=== PATIENT | male | born 1935 | race Caucasian/White ===

== ENCOUNTER → 2018-01-14 | Outpatient (REF) | payer MEDICARE, OTHER | LOC: M LAB REF 11:55 | DX: C44.629 Squamous cell carcinoma of skin of left upper limb, including shoulder (principal); L57.0 Actinic keratosis | CPT/HCPCS: 88305 ==

== ENCOUNTER → 2018-02-17 | Outpatient (REF) | payer MEDICARE, OTHER | LOC: M LAB REF 17:43 | DX: C44.629 Squamous cell carcinoma of skin of left upper limb, including shoulder (principal) | CPT/HCPCS: 88305 ==

== ENCOUNTER → 2024-03-29 | Outpatient (CLI) | payer MEDICARE, OTHER | LOC: M PLARAD 10:16 | PROVIDERS: ATTEND Internal Medicine Pulmonary Disease | DX: R91.8 Other nonspecific abnormal finding of lung field (principal) | CPT/HCPCS: 78815; A9552 ==

== ENCOUNTER → 2024-04-26 | Outpatient (CLI) | payer MEDICARE, OTHER | LOC: M RAD 13:38 | PROVIDERS: ATTEND Internal Medicine Pulmonary Disease | DX: R91.8 Other nonspecific abnormal finding of lung field (principal) ==

== ENCOUNTER 2024-05-25 05:39 | Inpatient (IN) | payer MEDICARE, OTHER ==
[~2024-05-25] VITALS: Ht 180.3 cm; Wt 66.1 kg
[~2024-05-25 05:39] MED LIST: AMLO1TAB25 PO; B-12100010 PO; BAYE81TA10 PO; CALC667T2 PO; CLOP75TA2 PO; FURO20TA2 PO; FURO40TA2 PO; LANTINJ4 SC; LISI20TA33 PO; METO1TAB7 PO; PANT40TA29 PO; ROSU20TA86 PO
[2024-05-25] MEDS ORDERED: ACETAMINOPHEN 325 MG TAB PO ONE (05:50)
[2024-05-25] MEDS: NS 1,000 ML IV ONE ×2 (06:00→08:12)
[2024-05-25] MEDS: ACETAMINOPHEN *IV* 1,000 MG in IV 1 EA IV ONE (06:00)
[2024-05-25] MEDS: PIPERACILLIN/TAZOBACTAM SOD 4.5 GM in DEXTROSE 5% (D5W) ADV/MINI-BAG 50 ML IV ONE (06:11)
[2024-05-25 06:24] LABS: BASO % 0.2 % (0.0-1.0); HEMATOCRIT 36.3 % (42.0-52.0); HEMOGLOBIN 12.1 g/dl (13.5-17.5); LYMPH # 0.9 10^3/uL (1.5-5.0); LYMPH % 5.6 % (24.0-44.0); MEAN CORPUSCULAR HEMOGLOBIN 31.3 pg (27.0-33.0); MEAN CORPUSCULAR HGB CONC 33.3 g/dl (32.0-36.5); MEAN CORPUSCULAR VOLUME 93.8 fl (80.0-96.0); MONO # 0.4 10^3/uL (0.0-0.8); MONO % 2.6 % (2.0-8.0); NEUTROPHILS # 13.9 10^3/uL (1.5-8.5); NEUTROPHILS % 90.4 % (36.0-66.0); PLATELET COUNT, AUTOMATED 167 10^3/uL (150-450); RED BLOOD COUNT 3.87 10^6/uL (4.30-6.10); WHITE BLOOD COUNT 15.4 10^3/uL (4.0-10.0)
[2024-05-25 07:48] LABS: ALBUMIN 3.4 G/DL (3.2-5.2); BILIRUBIN,DIRECT 0.4 MG/DL (<0.4); CALCIUM LEVEL 9.5 MG/DL (8.3-10.6); CREATININE FOR GFR 8.49 MG/DL (0.70-1.30); GLOMERULAR FILTRATION RATE 6.4 (>35); POTASSIUM SERUM 5.2 MMOL/L (3.5-5.1); TOTAL PROTEIN 7.7 G/DL (5.7-8.2)
[2024-05-25] MEDS ORDERED: HOME MED LIST COMPLETE! XX SCH (08:30)
[2024-05-25] MEDS: CALCIUM ACETATE 667MG GELCAP PO SCH (09:00)
[2024-05-25 09:17] LABS: PROCALCITONIN 0.88 ng/ml
[2024-05-25] MEDS ORDERED: MOM 30ML SUSPENSION UDC PO PRN (09:40)
[2024-05-25] MEDS ORDERED: ACETAMINOPHEN 325 MG TAB PO PRN (09:40)
[2024-05-25] MEDS: ASPIRIN 81MG ENTERIC TABLET PO SCH (10:41)
[2024-05-25] MEDS: CLOPIDOGREL 75 MG TAB PO SCH (10:41)
[2024-05-25] MEDS: AZITHROMYCIN 250MG TABLET PO SCH (10:41)
[2024-05-25] MEDS: PANTOPRAZOLE 40MG TAB (PROTONIX) PO SCH (10:41)
[2024-05-25] MEDS: DOCUSATE SODIUM 100MG CAPSULE PO SCH (10:42)
[2024-05-25] MEDS: CYANOCOBALAMIN 500 MCG TAB PO SCH (10:42)
[2024-05-25] MEDS: cefTRIAXone SOD 1 GM in DEXTROSE 5% (D5W) ADV/MINI-BAG 50 ML IV SCH (10:42)
[2024-05-25] MEDS: NS 500 ML IV ONE (10:54)
[2024-05-25 11:03] LABS: ALBUMIN 2.7 G/DL (3.2-5.2); CALCIUM LEVEL 8.7 MG/DL (8.3-10.6); CREATININE FOR GFR 8.71 MG/DL (0.70-1.30); GLOMERULAR FILTRATION RATE 6.2 (>35); PHOSPHORUS LEVEL 2.8 MG/DL (2.4-5.1); POTASSIUM SERUM 4.8 MMOL/L (3.5-5.1)
[2024-05-25] MEDS ORDERED: GLUCAGON INJ 1MG VIAL SC PRN (11:20)
[2024-05-25] MEDS ORDERED: GLUCOSE 4 GM CHEW PO PRN (11:20)
[2024-05-25] MEDS ORDERED: DEXTROSE 50% 50ML SYRINGE IV PRN (11:20)
[2024-05-25 11:47] LABS: HEPATITIS B CORE ANTIBODY IGM NEGATIVE (NEGATIVE); HEPATITIS B SURFACE ANTIBODY POSITIVE (POSITIVE); HEPATITIS B SURFACE ANTIGEN NEGATIVE (NEGATIVE); HEPATITIS C VIRUS ABY INDEX 0.03 INDEX (<0.8)
[2024-05-25] MEDS: INSULIN LISPRO (NovoLOG) PER UNIT SC SCH ×2 (12:36→21:00)
[2024-05-25] MEDS: ALBUTEROL 90 MCG/ACT 8GM HFA INHALER INH SCH (13:04)
[2024-05-25] MEDS: HEPARIN SOD (PORCINE) 5000UNITS/ML 1ML VIAL/SYRINGE SC SCH (14:29)
[2024-05-25 17:41] VITALS: BP 133/56; TEMP 98.1; O2SAT 95
[2024-05-25 20:42] VITALS: BP 131/55; TEMP 98.1; O2SAT 96
[2024-05-25] MEDS: LEVEMIR (INSULIN DETEMIR) 1 UNITS/0.01ML SC SCH (21:00)
[2024-05-25] MEDS: ROSUVASTATIN 10 MG TAB (CRESTOR) PO SCH (21:23)
[2024-05-25 22:27] VITALS: O2SAT 77
[2024-05-25 22:28] VITALS: O2SAT 90
[2024-05-25] MEDS: ALBUTEROL SULFATE 2.5MG/0.5ML INH NEB SOLN NEB PRN (23:07)
[2024-05-25 23:11] VITALS: O2SAT 90
[2024-05-25] MEDS: DOXYCYCLINE HYCLATE 100MG TABLET PO SCH (23:34)
[2024-05-26] VITALS (33 sets, daily range): BP systolic 102–158; BP diastolic 50–78; TEMP 97.7–101.8; O2SAT 85–98
[2024-05-26] MEDS: ALBUTEROL SULFATE 2.5MG/0.5ML INH NEB SOLN NEB SCH (01:56)
[2024-05-26] MEDS: FUROSEMIDE 100MG/10ML VIAL IV STA (04:01)
[2024-05-26] MEDS ORDERED: TRANEXAMIC ACID 100 MG/ML 10ML VIAL NEB PRN (04:10)
[2024-05-26 04:40] LABS: HEMATOCRIT 30.6 % (42.0-52.0); MEAN CORPUSCULAR HEMOGLOBIN 31.8 pg (27.0-33.0); MEAN CORPUSCULAR VOLUME 96.2 fl (80.0-96.0); PLATELET COUNT, AUTOMATED 136 10^3/uL (150-450); RED BLOOD COUNT 3.18 10^6/uL (4.30-6.10)
[2024-05-26 04:45] LABS: HEMOGLOBIN 10.1 g/dl (13.5-17.5)
[2024-05-26] MEDS ORDERED: VANCOMYCIN HCL 500 MG in DEXTROSE 5% (D5W) MINI-BAG PLU 100 ML IV SCH (04:45)
[2024-05-26] MEDS ORDERED: PIPERACILLIN/TAZOBACTAM SOD 3.375 GM in DEXTROSE 5% (D5W) ADV/MINI-BAG 50 ML IV SCH (04:45)
[2024-05-26 04:50] LABS: INR 1.2; PARTIAL THROMBOPLASTIN TIME 35.8 SECONDS (24.8-34.2); PROTHROMBIN TIME 14.9 SECONDS (12.5-14.5)
[2024-05-26 05:11] LABS: VENOUS BASE EXCESS -4.4 (-2.0-2.0); VENOUS PARTIAL PRESSURE CO2 34.2 mmHg (38.0-50.0); VENOUS PARTIAL PRESSURE O2 153.9 mmHg (30.0-50.0); VENOUS PH 7.384 UNITS (7.330-7.430); VENOUS STANDARD HCO3 20.9 MMOL/L
[2024-05-26 05:12] LABS: VENOUS SITE NOT GIVEN
[2024-05-26 05:31] LABS: ALBUMIN 2.5 G/DL (3.2-5.2); ALKALINE PHOSPHATASE 63 U/L (46-116); ALT/SGPT < 9 U/L (7.0-40); AST/SGOT < 8 U/L (<34); BILIRUBIN,DIRECT 0.2 MG/DL (<0.4); BILIRUBIN,TOTAL 0.5 MG/DL (0.3-1.2); BLOOD UREA NITROGEN 96 MG/DL (9-23); CARBON DIOXIDE LEVEL 23 MMOL/L (20-31); CHLORIDE LEVEL 104 MMOL/L (98-107); CREATININE FOR GFR 9.46 MG/DL (0.70-1.30); GLOMERULAR FILTRATION RATE 5.6 (>35); GLUCOSE, FASTING 136 MG/DL (74-106); PHOSPHORUS LEVEL 4.6 MG/DL (2.4-5.1); POTASSIUM SERUM 4.8 MMOL/L (3.5-5.1); SODIUM LEVEL 137 MMOL/L (136-145); TOTAL PROTEIN 6.1 G/DL (5.7-8.2)
[2024-05-26] MEDS: ACETAMINOPHEN *IV* 1,000 MG in IV 1 EA IV PRN (05:37)
[2024-05-26] MEDS ORDERED: VANCOMYCIN INTERMITTENT/PULSE DOSING BY CLINICAL PHARMACIST PER DOSING PROTOCOL XX SCH (05:40)
[2024-05-26] MEDS ORDERED: VANCOMYCIN 1,500 MG/300 ML IV BAG *LOAD IV ONE (06:00)
[2024-05-26] MEDS ORDERED: LIDOCAINE 1% SDV 5ML VIAL SC PRN (06:00)
[2024-05-26] MEDS ORDERED: HEPARIN 1,000UNITS/ML 10ML VIAL (FOR RADIOLOGY & DIALYSIS ONLY) IV PRN (06:00)
[2024-05-26] MEDS ORDERED: SODIUM CHLORIDE 0.9% 1000 ML IV PRN (06:00)
[2024-05-26 06:12] LABS: VENOUS HCO3 20.7 MMOL/L (23.0-27.0); VENOUS O2 SATURATION 99.1 % (60.0-80.0); VENOUS PARTIAL PRESSURE CO2 32.1 mmHg (38.0-50.0); VENOUS PARTIAL PRESSURE O2 199.3 mmHg (30.0-50.0); VENOUS PH 7.427 UNITS (7.330-7.430); VENOUS TOTAL CO2 21.7 MMOL/L (24.0-28.0)
[2024-05-26] MEDS: VANCOMYCIN 1,000 MG/200 ML IV BAG *LOAD IV ONE (06:17)
[2024-05-26] MEDS ORDERED: PIPERACILLIN/TAZOBACTAM SOD 2.25 GM in DEXTROSE 5% (D5W) ADV/MINI-BAG 50 ML IV SCH (08:00)
[2024-05-26] MEDS: HEPARIN 1,000UNITS/ML 10ML VIAL (FOR RADIOLOGY & DIALYSIS ONLY) XX SCH (10:00)
[2024-05-26] MEDS: KETOROLAC 30 MG/ML 1ML VIAL IV ONE (12:55)
[2024-05-26] MEDS: PIPERACILLIN/TAZOBACTAM SOD 2.25 GM in DEXTROSE 5% (D5W) ADV/MINI-BAG 50 ML IV SCH (12:58)
[2024-05-26] MEDS ORDERED: VANCOMYCIN/WATER FOR INJ 1,000 MG in IV 1 EA IV SCH (18:00)
[2024-05-26] MEDS: VANCOMYCIN/WATER FOR INJ 1,000 MG in IV 1 EA IV SCH (18:07)
[2024-05-27 03:20] VITALS: BP 111/55; TEMP 98.1; O2SAT 88
[2024-05-27 05:55] LABS: HEMOGLOBIN 9.2 g/dl (13.5-17.5); MEAN CORPUSCULAR HEMOGLOBIN 31.8 pg (27.0-33.0); MEAN CORPUSCULAR HGB CONC 32.9 g/dl (32.0-36.5); MEAN CORPUSCULAR VOLUME 96.9 fl (80.0-96.0); PLATELET COUNT, AUTOMATED 133 10^3/uL (150-450); RED BLOOD COUNT 2.89 10^6/uL (4.30-6.10)
[2024-05-27] MEDS ORDERED: SODIUM CHLORIDE 0.9% 1000 ML IV PRN (06:00)
[2024-05-27] MEDS ORDERED: LIDOCAINE 1% SDV 5ML VIAL SC PRN (06:00)
[2024-05-27] MEDS ORDERED: HEPARIN 1,000UNITS/ML 10ML VIAL (FOR RADIOLOGY & DIALYSIS ONLY) IV PRN (06:00)
[2024-05-27 06:19] LABS: CALCIUM LEVEL 8.8 MG/DL (8.3-10.6); CREATININE FOR GFR 6.49 MG/DL (0.70-1.30); GLOMERULAR FILTRATION RATE 8.7 (>35); POTASSIUM SERUM 4.4 MMOL/L (3.5-5.1)
[2024-05-27] MEDS: HEPARIN 1,000UNITS/ML 10ML VIAL (FOR RADIOLOGY & DIALYSIS ONLY) XX SCH (08:28)
[2024-05-27 12:00] VITALS: BP 105/54; TEMP 98.1; O2SAT 98
[2024-05-27] MEDS: FLUBLOK(EGGFREE) TRIVAL(24-25) VACCINE PF 0.5ML SYRINGE 18YRS & OLDER IM.IMMUN ONE (13:31)
[2024-05-27 17:18] VITALS: BP 88/40; O2SAT 96
[2024-05-27] MEDS: NS 500 ML IV ONE (17:32)
[2024-05-27] MEDS: MIDODRINE 5 MG TAB PO ONE (17:36)
[2024-05-27] MEDS: DIGOXIN INJ 0.5 MG/2 ML AMP IV STA (17:38)
[2024-05-27 17:58] VITALS: BP 120/40; TEMP 98.6; O2SAT 94
[2024-05-27 18:05] LABS: THYROXINE (T4) 5.5 UG/DL (4.5-10.9)
[2024-05-27 18:06] LABS: THYROID STIMULATING HORMONE 1.036 uIU/ML (0.55-4.78)
[2024-05-27 18:11] LABS: PROCALCITONIN 24.87 ng/ml
[2024-05-27 18:18] VITALS: BP 114/54; TEMP 99.9; O2SAT 95
[2024-05-27 18:49] LABS: FREE THYROXINE INDEX 2.4 % (1.4-3.8); T UPTAKE 43.6 % (22.5-37.0)
[2024-05-27] MEDS ORDERED: LEVALBUTEROL 1.25MG 0.5ML CONCENTRATE NEB INH PRN (19:45)
[2024-05-27 20:45] VITALS: BP 112/67; TEMP 98.9; O2SAT 95
[2024-05-27 21:39] LABS: CK-MB VALUE MASS 1.3 NG/ML (<3.6); MB/CK RELATIVE INDEX 2.5 (< OR =4)
[2024-05-27] MEDS ORDERED: ATORVASTATIN 20 MG TAB PO SCH (22:30)
[2024-05-28 00:04] LABS: CK-MB VALUE MASS < 1.0 NG/ML (<3.6)
[2024-05-28 00:05] LABS: CPK CREATINE PHOSPHOKINASE 44 U/L (46-171); MB/CK RELATIVE INDEX 2.27 (< OR =4)
[2024-05-28 01:00] VITALS: BP 123/58; TEMP 99.7; O2SAT 97
[2024-05-28] MEDS: LEVALBUTEROL 1.25MG 0.5ML CONCENTRATE NEB INH SCH (02:57)
[2024-05-28 03:03] LABS: CK-MB VALUE MASS < 1.0 NG/ML (<3.6)
[2024-05-28 03:04] LABS: CPK CREATINE PHOSPHOKINASE 39 U/L (46-171); MB/CK RELATIVE INDEX 2.56 (< OR =4)
[2024-05-28 03:57] VITALS: BP 134/63; TEMP 98.7; O2SAT 84
[2024-05-28 05:36] LABS: HEMATOCRIT 27.2 % (42.0-52.0); HEMOGLOBIN 9.1 g/dl (13.5-17.5); MEAN CORPUSCULAR HGB CONC 33.5 g/dl (32.0-36.5); MEAN CORPUSCULAR VOLUME 95.8 fl (80.0-96.0); PLATELET COUNT, AUTOMATED 145 10^3/uL (150-450); RED BLOOD COUNT 2.84 10^6/uL (4.30-6.10); WHITE BLOOD COUNT 12.4 10^3/uL (4.0-10.0)
[2024-05-28 05:55] LABS: CK-MB VALUE MASS < 1.0 NG/ML (<3.6)
[2024-05-28 05:57] LABS: BLOOD UREA NITROGEN 38 MG/DL (9-23); CALCIUM LEVEL 8.8 MG/DL (8.3-10.6); CARBON DIOXIDE LEVEL 24 MMOL/L (20-31); CHLORIDE LEVEL 104 MMOL/L (98-107); CPK CREATINE PHOSPHOKINASE 39 U/L (46-171); CREATININE FOR GFR 5.18 MG/DL (0.70-1.30); GLOMERULAR FILTRATION RATE 11.2 (>35); GLUCOSE, FASTING 94 MG/DL (74-106); MB/CK RELATIVE INDEX 2.56 (< OR =4); POTASSIUM SERUM 3.7 MMOL/L (3.5-5.1); SODIUM LEVEL 138 MMOL/L (136-145)
[2024-05-28 07:53] VITALS: BP 124/60; TEMP 99.2; O2SAT 97
[2024-05-28 09:05] VITALS: O2SAT 96
[2024-05-28 16:12] VITALS: BP 142/73; TEMP 99.6; O2SAT 97
[2024-05-28] MEDS: ceFAZolin SOD 1 GM in DEXTROSE 5% (D5W) ADV/MINI-BAG 50 ML IV SCH (16:25)
[2024-05-28 20:44] VITALS: BP 143/92; TEMP 99; O2SAT 94
[2024-05-29] VITALS (7 sets, daily range): BP systolic 117–164; BP diastolic 57–92; TEMP 98.9–101.6; O2SAT 90–95
[2024-05-29 05:01] LABS: HEMOGLOBIN 9.8 g/dl (13.5-17.5); MEAN CORPUSCULAR HEMOGLOBIN 31.6 pg (27.0-33.0); MEAN CORPUSCULAR HGB CONC 33.8 g/dl (32.0-36.5); MEAN CORPUSCULAR VOLUME 93.5 fl (80.0-96.0); PLATELET COUNT, AUTOMATED 177 10^3/uL (150-450); WHITE BLOOD COUNT 11.2 10^3/uL (4.0-10.0)
[2024-05-29 05:35] LABS: CALCIUM LEVEL 9.4 MG/DL (8.3-10.6); CREATININE FOR GFR 6.87 MG/DL (0.70-1.30); GLOMERULAR FILTRATION RATE 8.1 (>35); POTASSIUM SERUM 3.8 MMOL/L (3.5-5.1)
[2024-05-29] MEDS ORDERED: HEPARIN 1,000UNITS/ML 10ML VIAL (FOR RADIOLOGY & DIALYSIS ONLY) XX SCH (06:00)
[2024-05-29] MEDS ORDERED: HEPARIN 1,000UNITS/ML 10ML VIAL (FOR RADIOLOGY & DIALYSIS ONLY) IV PRN (06:00)
[2024-05-29] MEDS ORDERED: LIDOCAINE 1% SDV 5ML VIAL SC PRN (06:00)
[2024-05-29] MEDS ORDERED: SODIUM CHLORIDE 0.9% 1000 ML IV PRN (06:00)
[2024-05-29] MEDS ORDERED: SODIUM CHLORIDE NASAL 0.65% SPRAY BTL (OCEAN) PRN (08:15)
[2024-05-29] MEDS: DARBEPOETIN 100MCG/0.5ML *DIALYSIS* SYRINGE IV SCH (09:41)
[2024-05-29] MEDS: SODIUM CHLORIDE NASAL 0.65% SPRAY BTL (OCEAN) SCH (13:10)
[2024-05-29] MEDS: METOPROLOL 5 MG/5 ML VIAL IV SCH (13:10)
[2024-05-29] MEDS ORDERED: ONDANSETRON 4MG 2ML VIAL IV PRN (14:55)
[2024-05-29] MEDS: ONDANSETRON 4MG 2ML VIAL IV ONE (15:09)
[2024-05-29 15:54] LABS: CK-MB VALUE MASS < 1.0 NG/ML (<3.6)
[2024-05-29 15:58] LABS: CPK CREATINE PHOSPHOKINASE 27 U/L (46-171)
[2024-05-29] MEDS ORDERED: METOPROLOL TART 25 MG TABLET PO SCH (21:00)
[2024-05-30 04:05] VITALS: BP 128/60; TEMP 100.1; O2SAT 90
[2024-05-30 07:24] LABS: HEMOGLOBIN 10.8 g/dl (13.5-17.5); MEAN CORPUSCULAR HEMOGLOBIN 31.7 pg (27.0-33.0); MEAN CORPUSCULAR HGB CONC 33.8 g/dl (32.0-36.5); MEAN CORPUSCULAR VOLUME 93.8 fl (80.0-96.0); PLATELET COUNT, AUTOMATED 230 10^3/uL (150-450); RED BLOOD COUNT 3.41 10^6/uL (4.30-6.10); WHITE BLOOD COUNT 14.1 10^3/uL (4.0-10.0)
[2024-05-30 08:02] LABS: CALCIUM LEVEL 9.3 MG/DL (8.3-10.6); CREATININE FOR GFR 5.25 MG/DL (0.70-1.30); GLOMERULAR FILTRATION RATE 11.1 (>35); POTASSIUM SERUM 3.9 MMOL/L (3.5-5.1)
[2024-05-30 08:05] VITALS: BP 114/60; TEMP 99; O2SAT 99
[2024-05-30 11:48] VITALS: BP 127/60; TEMP 100; O2SAT 90
[2024-05-30 15:56] VITALS: BP 133/65; TEMP 99.6; O2SAT 91
[2024-05-30 20:27] VITALS: BP 112/56; TEMP 99.8; O2SAT 93
[2024-05-31 03:59] VITALS: BP 135/63; TEMP 99.5; O2SAT 92
[2024-05-31 05:17] LABS: HEMATOCRIT 27.6 % (42.0-52.0); HEMOGLOBIN 9.4 g/dl (13.5-17.5); MEAN CORPUSCULAR HEMOGLOBIN 31.6 pg (27.0-33.0); MEAN CORPUSCULAR HGB CONC 34.1 g/dl (32.0-36.5); MEAN CORPUSCULAR VOLUME 92.9 fl (80.0-96.0); PLATELET COUNT, AUTOMATED 243 10^3/uL (150-450); RED BLOOD COUNT 2.97 10^6/uL (4.30-6.10); WHITE BLOOD COUNT 14.3 10^3/uL (4.0-10.0)
[2024-05-31 05:54] LABS: CREATININE FOR GFR 7.6 MG/DL (0.70-1.30); GLOMERULAR FILTRATION RATE 7.2 (>35); POTASSIUM SERUM 3.6 MMOL/L (3.5-5.1)
[2024-05-31 08:24] VITALS: BP 138/64; TEMP 99.3; O2SAT 100
[2024-05-31 15:56] VITALS: BP 145/67; TEMP 99.2; O2SAT 95
[2024-05-31 20:39] VITALS: BP 137/62; TEMP 99; O2SAT 93
[2024-05-31 22:58] VITALS: BP 147/47; TEMP 98.8; O2SAT 94
[2024-06-01] VITALS (8 sets, daily range): BP systolic 88–146; BP diastolic 32–67; TEMP 98.1–100.6; O2SAT 95–99
[2024-06-01] MEDS ORDERED: HEPARIN 1,000UNITS/ML 10ML VIAL (FOR RADIOLOGY & DIALYSIS ONLY) XX SCH (06:00)
[2024-06-01] MEDS ORDERED: SODIUM CHLORIDE 0.9% 1000 ML IV PRN (06:00)
[2024-06-01] MEDS ORDERED: HEPARIN 1,000UNITS/ML 10ML VIAL (FOR RADIOLOGY & DIALYSIS ONLY) IV PRN (06:00)
[2024-06-01] MEDS ORDERED: LIDOCAINE 1% SDV 5ML VIAL SC PRN (06:00)
[2024-06-01] MEDS: DIGOXIN INJ 0.5 MG/2 ML AMP IV STA (12:32)
[2024-06-01] MEDS: METOPROLOL TART 12.5 MG PER 1/2 TAB PO SCH (13:12)
[2024-06-01] MEDS: METOPROLOL 5 MG/5 ML VIAL IV STA (13:12)
[2024-06-01 14:03] LABS: HEMATOCRIT 31.9 % (42.0-52.0); HEMOGLOBIN 10.8 g/dl (13.5-17.5); MEAN CORPUSCULAR HEMOGLOBIN 31.5 pg (27.0-33.0); MEAN CORPUSCULAR HGB CONC 33.9 g/dl (32.0-36.5); PLATELET COUNT, AUTOMATED 316 10^3/uL (150-450); RED BLOOD COUNT 3.43 10^6/uL (4.30-6.10); WHITE BLOOD COUNT 12.3 10^3/uL (4.0-10.0)
[2024-06-01 14:42] LABS: ALBUMIN 2.4 G/DL (3.2-5.2); CREATININE FOR GFR 4.13 MG/DL (0.70-1.30); GLOMERULAR FILTRATION RATE 14.6 (>35); PHOSPHORUS LEVEL 1.8 MG/DL (2.4-5.1); POTASSIUM SERUM 3.4 MMOL/L (3.5-5.1)
[2024-06-02] VITALS (7 sets, daily range): BP systolic 122–149; BP diastolic 59–69; TEMP 98–99.3; O2SAT 95–98
[2024-06-02 05:09] LABS: HEMATOCRIT 30.6 % (42.0-52.0); HEMOGLOBIN 10.1 g/dl (13.5-17.5); MEAN CORPUSCULAR HEMOGLOBIN 30.9 pg (27.0-33.0); MEAN CORPUSCULAR VOLUME 93.6 fl (80.0-96.0); PLATELET COUNT, AUTOMATED 337 10^3/uL (150-450); RED BLOOD COUNT 3.27 10^6/uL (4.30-6.10); WHITE BLOOD COUNT 14.3 10^3/uL (4.0-10.0)
[2024-06-02 05:50] LABS: ALBUMIN 2.3 G/DL (3.2-5.2); CREATININE FOR GFR 6.44 MG/DL (0.70-1.30); GLOMERULAR FILTRATION RATE 8.8 (>35); PHOSPHORUS LEVEL 2.5 MG/DL (2.4-5.1); POTASSIUM SERUM 3.5 MMOL/L (3.5-5.1)
[2024-06-03 03:23] VITALS: BP 124/58; TEMP 98.7; O2SAT 96
[2024-06-03 05:59] VITALS: BP 146/67
[2024-06-03] MEDS ORDERED: HEPARIN 1,000UNITS/ML 10ML VIAL (FOR RADIOLOGY & DIALYSIS ONLY) XX SCH (06:00)
[2024-06-03] MEDS ORDERED: HEPARIN 1,000UNITS/ML 10ML VIAL (FOR RADIOLOGY & DIALYSIS ONLY) IV PRN (06:00)
[2024-06-03] MEDS ORDERED: LIDOCAINE 1% SDV 5ML VIAL SC PRN (06:00)
[2024-06-03] MEDS ORDERED: SODIUM CHLORIDE 0.9% 1000 ML IV PRN (06:00)
[2024-06-03 07:05] LABS: HEMATOCRIT 29.9 % (42.0-52.0); MEAN CORPUSCULAR HEMOGLOBIN 31.3 pg (27.0-33.0); MEAN CORPUSCULAR HGB CONC 33.4 g/dl (32.0-36.5); MEAN CORPUSCULAR VOLUME 93.4 fl (80.0-96.0); PLATELET COUNT, AUTOMATED 377 10^3/uL (150-450); WHITE BLOOD COUNT 14.5 10^3/uL (4.0-10.0)
[2024-06-03 07:38] LABS: ALBUMIN 2.3 G/DL (3.2-5.2); CALCIUM LEVEL 9.1 MG/DL (8.3-10.6); CREATININE FOR GFR 8.61 MG/DL (0.70-1.30); GLOMERULAR FILTRATION RATE 6.3 (>35); PHOSPHORUS LEVEL 3.5 MG/DL (2.4-5.1); POTASSIUM SERUM 3.7 MMOL/L (3.5-5.1)
[2024-06-03 08:06] VITALS: BP 132/82; TEMP 98.7; O2SAT 97
[2024-06-03] MEDS ORDERED: CEFA2PLA4 IV (08:32)
[2024-06-03 09:02] LABS: PROCALCITONIN 1.68 ng/ml
[2024-06-03] MEDS ORDERED: METO25TA4 PO (10:18)
== END 2024-06-03 14:26 | disposition home or self-care (01) | DRG 871 ==
LOC: M ED 05:39 → EEVIPCON 09:40 → M ED INP 09:40 → M MSPAV 17:32 → M PCU 05-26 04:06 → M ICU 05-26 04:43 → M MSPAV 05-26 17:44 → M PCU 05-27 18:05 → M MSPAV 05-31 22:45 → M PCU 06-01 13:02
PROVIDERS: ADMIT Student in an Organized Health Care Education/Training Program; ATTEND General Practice
PROC: 5A1D70Z Performance of Urinary Filtration, Intermittent, Less than 6 Hours Per Day (ICD-10-PCS; principal; 2024-05-27)
DX: A41.9 Sepsis, unspecified organism (principal); N18.6 End stage renal disease; J96.01 Acute respiratory failure with hypoxia; J15.211 Pneumonia due to Methicillin susceptible Staphylococcus aureus; I12.0 Hypertensive chronic kidney disease with stage 5 chronic kidney disease or end stage renal disease; R04.2 Hemoptysis; R65.20 Severe sepsis without septic shock; E11.51 Type 2 diabetes mellitus with diabetic peripheral angiopathy without gangrene; E11.22 Type 2 diabetes mellitus with diabetic chronic kidney disease; D64.9 Anemia, unspecified; K21.9 Gastro-esophageal reflux disease without esophagitis; R04.0 Epistaxis; I48.91 Unspecified atrial fibrillation; I48.0 Paroxysmal atrial fibrillation; I25.10 Atherosclerotic heart disease of native coronary artery without angina pectoris; Z95.1 Presence of aortocoronary bypass graft; Z96.653 Presence of artificial knee joint, bilateral; Z87.891 Personal history of nicotine dependence; Z79.899 Other long term (current) drug therapy; Z79.82 Long term (current) use of aspirin

== ENCOUNTER → 2024-06-25 | Outpatient (CLI) | payer MEDICARE, OTHER ==
[~2024-06-25] MED LIST changes: +CEFA2PLA4 IV; +METO25TA4 PO
== END ==
LOC: M RAD 07:32
PROVIDERS: ATTEND Internal Medicine Pulmonary Disease
DX: R91.8 Other nonspecific abnormal finding of lung field (principal); J90 Pleural effusion, not elsewhere classified; I25.84 Coronary atherosclerosis due to calcified coronary lesion

== ENCOUNTER → 2024-06-28 | Outpatient (CLI) | payer MEDICARE, OTHER ==
[2024-06-28 10:14] LABS: BASO # 0.1 10^3/uL (0.0-0.2); BASO % 0.5 % (0.0-1.0); EOS # 0.4 10^3/uL (0.0-0.5); EOS % 3.3 % (0.0-3.0); HEMATOCRIT 35.4 % (42.0-52.0); HEMOGLOBIN 11.3 g/dl (13.5-17.5); LYMPH # 2.6 10^3/uL (1.5-5.0); LYMPH % 19.8 % (24.0-44.0); MEAN CORPUSCULAR HEMOGLOBIN 31.6 pg (27.0-33.0); MEAN CORPUSCULAR HGB CONC 31.9 g/dl (32.0-36.5); MEAN CORPUSCULAR VOLUME 98.9 fl (80.0-96.0); MONO # 1.2 10^3/uL (0.0-0.8); MONO % 8.8 % (2.0-8.0); NEUTROPHILS # 8.8 10^3/uL (1.5-8.5); NEUTROPHILS % 67.1 % (36.0-66.0); PLATELET COUNT, AUTOMATED 263 10^3/uL (150-450); RED BLOOD COUNT 3.58 10^6/uL (4.30-6.10); WHITE BLOOD COUNT 13.2 10^3/uL (4.0-10.0)
[2024-06-28 10:18] LABS: ERYTHROCYTE SEDIMENTATION RATE 68 mm/hr (0-20)
== END ==
LOC: M PLALAB 08:49
PROVIDERS: ATTEND Internal Medicine Infectious Disease
DX: A49.01 Methicillin susceptible Staphylococcus aureus infection, unspecified site (principal); R91.8 Other nonspecific abnormal finding of lung field

== ENCOUNTER 2024-06-30 08:16 | Day surgery (SDC) | payer MEDICARE, OTHER ==
[~2024-06-30] VITALS: Ht 170.2 cm; Wt 70.3 kg
[2024-06-30] MEDS ORDERED: ETOMIDATE INJ 20MG/10ML VIAL As Ordered ONE (08:28)
[2024-06-30] MEDS ORDERED: LIDOCAINE 2% 100MG/5ML SDV (FOR ANES.) As Ordered ONE (08:28)
[2024-06-30] MEDS ORDERED: ONDANSETRON 4MG 2ML VIAL As Ordered ONE (08:28)
[2024-06-30] MEDS ORDERED: SUGAMMADEX SODIUM 500 MG/5 ML VIAL (BRIDION) As Ordered ONE (08:28)
[2024-06-30] MEDS ORDERED: ROCURONIUM BROMIDE 50MG/5ML VIAL As Ordered ONE (08:28)
[2024-06-30] MEDS ORDERED: propofoL 200 MG/20 ML VIAL As Ordered ONE (08:28)
[2024-06-30] MEDS ORDERED: GLUCOSE 4 GM CHEW PO PRN (09:05)
[2024-06-30] MEDS ORDERED: GLUCAGON INJ 1MG VIAL SC PRN (09:05)
[2024-06-30] MEDS ORDERED: DEXTROSE 50% 50ML SYRINGE IV PRN (09:05)
[2024-06-30] MEDS ORDERED: LR 1,000 ML IV SCH (09:05)
[2024-06-30] MEDS ORDERED: INSULIN LISPRO (NovoLOG) PER UNIT SC PRN (09:05)
[2024-06-30] MEDS ORDERED: DESMOPRESSIN ACETATE 20 MCG in NS 50 ML IV ONE (09:20)
[2024-06-30] MEDS ORDERED: fentaNYL 100 MCG/2 ML INJECTION As Ordered ONE (10:00)
[2024-06-30] MEDS: ALBUTEROL SULFATE 2.5MG/0.5ML INH NEB SOLN INH ONE (10:00)
[2024-06-30] MEDS: LIDOCAINE PRES-FREE 2% 10ML AMP INH ONE (10:00)
[2024-06-30] MEDS: CETACAINE SPRAY 5GM As Ordered ONE (10:35)
[2024-06-30] MEDS ORDERED: PHENYLephrine 500MCG 5ML (100MCG/ML) SYRINGE As Ordered ONE (11:11)
[2024-06-30] MEDS: EPINEPHrine 1MG/10ML SYRINGE 1.5IN As Ordered ONE (11:43)
[2024-06-30] MEDS: THROMBIN 5,000 UNITS VIAL As Ordered ONE (11:43)
[2024-06-30 12:06] VITALS: BP 107/57; TEMP 97.3; O2SAT 96
== END 2024-06-30 12:35 | disposition home or self-care (01) ==
LOC: M SDC 08:16
PROVIDERS: ATTEND Internal Medicine Pulmonary Disease
DX: C34.32 Malignant neoplasm of lower lobe, left bronchus or lung (principal); I25.10 Atherosclerotic heart disease of native coronary artery without angina pectoris; I10 Essential (primary) hypertension; E11.9 Type 2 diabetes mellitus without complications; K21.9 Gastro-esophageal reflux disease without esophagitis; G47.33 Obstructive sleep apnea (adult) (pediatric); Z79.02 Long term (current) use of antithrombotics/antiplatelets; Z79.4 Long term (current) use of insulin; Z79.899 Other long term (current) drug therapy; Z88.2 Allergy status to sulfonamides
CPT/HCPCS: 31624; 31627; 31628; 31629; 31654; 36415; 71045; 76000; 84132; 87070; 87102; 87116; 87205; 87206; 88108; 88173; 88305; C1601; J0171; J1100; J2371; J2405; J3010; S2900

== ENCOUNTER 2024-07-06 14:22 | Inpatient (IN) | payer MEDICARE, OTHER ==
[~2024-07-06] VITALS: Ht 172.7 cm; Wt 65.1 kg
[2024-07-06 15:05] LABS: BASO % 0.5 % (0.0-1.0); EOS # 0.2 10^3/uL (0.0-0.5); EOS % 2.6 % (0.0-3.0); HEMATOCRIT 32.8 % (42.0-52.0); HEMOGLOBIN 10.7 g/dl (13.5-17.5); LYMPH # 1.8 10^3/uL (1.5-5.0); MEAN CORPUSCULAR HEMOGLOBIN 31.5 pg (27.0-33.0); MEAN CORPUSCULAR HGB CONC 32.6 g/dl (32.0-36.5); MEAN CORPUSCULAR VOLUME 96.5 fl (80.0-96.0); MONO # 0.8 10^3/uL (0.0-0.8); MONO % 9.6 % (2.0-8.0); NEUTROPHILS # 5.7 10^3/uL (1.5-8.5); NEUTROPHILS % 65.8 % (36.0-66.0); PLATELET COUNT, AUTOMATED 189 10^3/uL (150-450); WHITE BLOOD COUNT 8.7 10^3/uL (4.0-10.0)
[2024-07-06] MEDS ORDERED: LISI20TA33 PO (15:07)
[2024-07-06] MEDS: METOPROLOL 5 MG/5 ML VIAL IV SCH (15:08)
[2024-07-06 15:16] LABS: INR 1.1; PARTIAL THROMBOPLASTIN TIME 27.5 SECONDS (24.8-34.2); PROTHROMBIN TIME 14.5 SECONDS (12.5-14.5)
[2024-07-06 15:26] LABS: CK-MB VALUE MASS < 1.0 NG/ML (<3.6)
[2024-07-06 15:29] LABS: ALKALINE PHOSPHATASE 113 U/L (40-129); ALT/SGPT 10 U/L (7.0-40); AST/SGOT 13 U/L (<34); BILIRUBIN,DIRECT 0.2 MG/DL (<0.4); BILIRUBIN,TOTAL 0.5 MG/DL (0.3-1.2); BLOOD UREA NITROGEN 40 MG/DL (9-23); CALCIUM LEVEL 9.3 MG/DL (8.3-10.6); CARBON DIOXIDE LEVEL 33 MMOL/L (20-31); CHLORIDE LEVEL 98 MMOL/L (98-107); CREATININE FOR GFR 5.53 MG/DL (0.70-1.30); GLOMERULAR FILTRATION RATE 10.4 (>35); GLUCOSE, FASTING 124 MG/DL (74-106); MAGNESIUM LEVEL 2.1 MG/DL (1.8-2.4); SODIUM LEVEL 141 MMOL/L (136-145); TOTAL PROTEIN 7.3 G/DL (5.7-8.2)
[2024-07-06 15:31] LABS: FREE T4 1.71 NG/DL (0.89-1.76); THYROID STIMULATING HORMONE 0.794 uIU/ML (0.55-4.78)
[2024-07-06 15:32] LABS: CPK CREATINE PHOSPHOKINASE 35 U/L (46-171); MB/CK RELATIVE INDEX 2.85 (< OR =4)
[2024-07-06 16:32] LABS: CK-MB VALUE MASS < 1.0 NG/ML (<3.6)
[2024-07-06 16:33] LABS: CPK CREATINE PHOSPHOKINASE 27 U/L (46-171)
[2024-07-06] MEDS ORDERED: HOME MED LIST COMPLETE! XX SCH (17:40)
[2024-07-06] MEDS: PIPERACILLIN/TAZOBACTAM SOD 2.25 GM in DEXTROSE 5% (D5W) ADV/MINI-BAG 50 ML IV ONE (17:46)
[2024-07-06] MEDS: DIGOXIN INJ 0.5 MG/2 ML AMP IV STA (17:46)
[2024-07-06] MEDS: DIGOXIN INJ 0.5 MG/2 ML AMP IV ONE (19:41)
[2024-07-06] MEDS ORDERED: METOPROLOL TART 25 MG TABLET PO SCH (20:00)
[2024-07-06] MEDS: METOPROLOL TART 50 MG TAB PO SCH (20:40)
[2024-07-06 21:45] VITALS: BP 140/77; TEMP 98.8; O2SAT 97
[2024-07-06] MEDS: PANTOPRAZOLE 40MG TAB (PROTONIX) PO SCH (21:55)
[2024-07-06] MEDS: LEVEMIR (INSULIN DETEMIR) 1 UNITS/0.01ML SC SCH (21:56)
[2024-07-07] VITALS (8 sets, daily range): BP systolic 131–168; BP diastolic 58–87; TEMP 97.9–98.9; O2SAT 91–99
[2024-07-07] MEDS: DIGOXIN INJ 0.5 MG/2 ML AMP IV ONE ×2 (01:16→08:26)
[2024-07-07] MEDS: METOPROLOL 5 MG/5 ML VIAL IV STA (06:16)
[2024-07-07 06:28] LABS: BASO # 0.1 10^3/uL (0.0-0.2); BASO % 0.6 % (0.0-1.0); EOS # 0.4 10^3/uL (0.0-0.5); EOS % 3.8 % (0.0-3.0); HEMOGLOBIN 10.5 g/dl (13.5-17.5); LYMPH # 2.5 10^3/uL (1.5-5.0); LYMPH % 25.7 % (24.0-44.0); MEAN CORPUSCULAR HEMOGLOBIN 31.2 pg (27.0-33.0); MEAN CORPUSCULAR HGB CONC 31.8 g/dl (32.0-36.5); MEAN CORPUSCULAR VOLUME 97.9 fl (80.0-96.0); MONO % 10.5 % (2.0-8.0); NEUTROPHILS # 5.8 10^3/uL (1.5-8.5); PLATELET COUNT, AUTOMATED 208 10^3/uL (150-450); RED BLOOD COUNT 3.37 10^6/uL (4.30-6.10); WHITE BLOOD COUNT 9.8 10^3/uL (4.0-10.0)
[2024-07-07 06:49] LABS: CALCIUM LEVEL 9.1 MG/DL (8.3-10.6); CREATININE FOR GFR 7.56 MG/DL (0.70-1.30); GLOMERULAR FILTRATION RATE 7.3 (>35); POTASSIUM SERUM 4.5 MMOL/L (3.5-5.1)
[2024-07-07] MEDS: CLOPIDOGREL 75 MG TAB PO SCH (08:24)
[2024-07-07] MEDS: ASPIRIN 81MG CHEW TABLET PO SCH (08:24)
[2024-07-07] MEDS: MOM 30ML SUSPENSION UDC PO PRN (13:04)
[2024-07-07] MEDS: ROSUVASTATIN 10 MG TAB (CRESTOR) PO SCH (20:41)
[2024-07-08] VITALS (9 sets, daily range): BP systolic 106–160; BP diastolic 54–78; TEMP 97.7–99.4; O2SAT 88–100
[2024-07-08 05:03] LABS: BASO # 0.1 10^3/uL (0.0-0.2); BASO % 0.4 % (0.0-1.0); EOS # 0.3 10^3/uL (0.0-0.5); EOS % 2.4 % (0.0-3.0); HEMATOCRIT 33.8 % (42.0-52.0); HEMOGLOBIN 10.8 g/dl (13.5-17.5); LYMPH # 2.7 10^3/uL (1.5-5.0); MEAN CORPUSCULAR HEMOGLOBIN 31.2 pg (27.0-33.0); MEAN CORPUSCULAR VOLUME 97.7 fl (80.0-96.0); MONO # 1.5 10^3/uL (0.0-0.8); MONO % 12.2 % (2.0-8.0); NEUTROPHILS # 7.3 10^3/uL (1.5-8.5); NEUTROPHILS % 61.5 % (36.0-66.0); PLATELET COUNT, AUTOMATED 203 10^3/uL (150-450); RED BLOOD COUNT 3.46 10^6/uL (4.30-6.10); WHITE BLOOD COUNT 11.9 10^3/uL (4.0-10.0)
[2024-07-08 05:40] LABS: CALCIUM LEVEL 8.8 MG/DL (8.3-10.6); CREATININE FOR GFR 9.15 MG/DL (0.70-1.30); GLOMERULAR FILTRATION RATE 5.8 (>35); POTASSIUM SERUM 5.3 MMOL/L (3.5-5.1)
[2024-07-08] MEDS ORDERED: SODIUM CHLORIDE 0.9% 1000 ML IV PRN (06:00)
[2024-07-08] MEDS ORDERED: HEPARIN 1,000UNITS/ML 10ML VIAL (FOR RADIOLOGY & DIALYSIS ONLY) XX SCH (06:00)
[2024-07-08] MEDS: HEPARIN 1,000UNITS/ML 10ML VIAL (FOR RADIOLOGY & DIALYSIS ONLY) IV PRN (10:51)
[2024-07-08 15:26] LABS: APPEARANCE, BODY FLUID CLOUDY (CLEAR); PLEURAL FL COLOR PINK (COLORLESS); SOURCE, BODY FLUID PLEURAL
[2024-07-08 15:49] LABS: PH BODY FLUID 7.579 UNITS (NOT ESTABLISHED); SOURCE, BODY FLUID pH PLEURAL
[2024-07-08 15:58] LABS: SOURCE, BODY FLUID GLUCOSE PLEURAL
[2024-07-08 16:00] LABS: AMYLASE, BODY FLUID 65 U/L (NOT ESTABLISHED); LDH, BODY FLUID 104 U/L (NOT ESTABLISHED); SOURCE, BODY FLUID AMYLASE PLEURAL; SOURCE, BODY FLUID LDH PLEURAL
[2024-07-08 16:09] LABS: SOURCE, BODY FLUID TOT PROTEIN PLEURAL
[2024-07-08] MEDS: LEVEMIR (INSULIN DETEMIR) 1 UNITS/0.01ML SC SCH (20:12)
[2024-07-09 03:52] VITALS: BP 152/72; TEMP 98.9; O2SAT 100
[2024-07-09 04:51] LABS: BASO % 0.3 % (0.0-1.0); EOS # 0.3 10^3/uL (0.0-0.5); EOS % 3.2 % (0.0-3.0); HEMATOCRIT 32.2 % (42.0-52.0); HEMOGLOBIN 10.1 g/dl (13.5-17.5); LYMPH # 2.5 10^3/uL (1.5-5.0); LYMPH % 24.9 % (24.0-44.0); MEAN CORPUSCULAR HEMOGLOBIN 31.2 pg (27.0-33.0); MEAN CORPUSCULAR HGB CONC 31.4 g/dl (32.0-36.5); MEAN CORPUSCULAR VOLUME 99.4 fl (80.0-96.0); MONO # 1.2 10^3/uL (0.0-0.8); MONO % 11.9 % (2.0-8.0); NEUTROPHILS # 5.8 10^3/uL (1.5-8.5); NEUTROPHILS % 59.2 % (36.0-66.0); PLATELET COUNT, AUTOMATED 191 10^3/uL (150-450); RED BLOOD COUNT 3.24 10^6/uL (4.30-6.10); WHITE BLOOD COUNT 9.9 10^3/uL (4.0-10.0)
[2024-07-09 05:11] LABS: CALCIUM LEVEL 8.7 MG/DL (8.3-10.6); CREATININE FOR GFR 6.54 MG/DL (0.70-1.30); GLOMERULAR FILTRATION RATE 8.6 (>35)
[2024-07-09] MEDS ORDERED: SODIUM CHLORIDE 0.9% 1000 ML IV PRN (06:00)
[2024-07-09] MEDS ORDERED: HEPARIN 1,000UNITS/ML 10ML VIAL (FOR RADIOLOGY & DIALYSIS ONLY) IV PRN (06:00)
[2024-07-09] MEDS ORDERED: LIDOCAINE 1% SDV 5ML VIAL SC PRN (06:00)
[2024-07-09 07:55] VITALS: BP 156/72; TEMP 98; O2SAT 95
[2024-07-09] MEDS: HEPARIN 1,000UNITS/ML 10ML VIAL (FOR RADIOLOGY & DIALYSIS ONLY) XX SCH (08:54)
[2024-07-09 12:00] VITALS: BP 140/63; TEMP 98.1; O2SAT 94
[2024-07-09 16:00] VITALS: BP 133/60; TEMP 99.3; O2SAT 94
[2024-07-09 19:51] VITALS: BP 119/54; TEMP 99.1; O2SAT 94
[2024-07-09 23:56] VITALS: BP 108/53; TEMP 98.6; O2SAT 93
[2024-07-10 04:13] VITALS: BP 136/63; TEMP 98.7; O2SAT 93
[2024-07-10] MEDS ORDERED: HEPARIN 1,000UNITS/ML 10ML VIAL (FOR RADIOLOGY & DIALYSIS ONLY) XX SCH (06:00)
[2024-07-10] MEDS ORDERED: SODIUM CHLORIDE 0.9% 1000 ML IV PRN (06:00)
[2024-07-10] MEDS ORDERED: LIDOCAINE 1% SDV 5ML VIAL SC PRN (06:00)
[2024-07-10] MEDS ORDERED: HEPARIN 1,000UNITS/ML 10ML VIAL (FOR RADIOLOGY & DIALYSIS ONLY) IV PRN (06:00)
[2024-07-10 12:40] VITALS: BP 139/65; TEMP 98.3; O2SAT 96
[2024-07-10 15:53] VITALS: BP 122/58; TEMP 97.9; O2SAT 93
[2024-07-10] MEDS: LEVEMIR (INSULIN DETEMIR) 1 UNITS/0.01ML SC SCH (20:24)
[2024-07-10 20:25] VITALS: BP 112/53; TEMP 99.6; O2SAT 95
[2024-07-10 23:47] VITALS: BP 137/63; TEMP 98.4; O2SAT 93
[2024-07-11 03:43] VITALS: BP 100/45; TEMP 98.7; O2SAT 96
[2024-07-11 07:02] LABS: BASO % 0.3 % (0.0-1.0); EOS # 0.4 10^3/uL (0.0-0.5); EOS % 2.5 % (0.0-3.0); HEMATOCRIT 35.5 % (42.0-52.0); HEMOGLOBIN 11.4 g/dl (13.5-17.5); LYMPH # 3.3 10^3/uL (1.5-5.0); LYMPH % 23.4 % (24.0-44.0); MEAN CORPUSCULAR HEMOGLOBIN 30.9 pg (27.0-33.0); MEAN CORPUSCULAR HGB CONC 32.1 g/dl (32.0-36.5); MEAN CORPUSCULAR VOLUME 96.2 fl (80.0-96.0); MONO # 1.4 10^3/uL (0.0-0.8); MONO % 10.1 % (2.0-8.0); NEUTROPHILS % 63.3 % (36.0-66.0); PLATELET COUNT, AUTOMATED 232 10^3/uL (150-450); RED BLOOD COUNT 3.69 10^6/uL (4.30-6.10); WHITE BLOOD COUNT 14.2 10^3/uL (4.0-10.0)
[2024-07-11 07:35] LABS: CREATININE FOR GFR 5.49 MG/DL (0.70-1.30); GLOMERULAR FILTRATION RATE 10.5 (>35); POTASSIUM SERUM 4.4 MMOL/L (3.5-5.1)
[2024-07-11 07:41] VITALS: BP 115/57; TEMP 98.4; O2SAT 94
[2024-07-11 09:22] VITALS: BP 122/60
[2024-07-11] MEDS ORDERED: LOPR1TAB7 PO (09:28)
== END 2024-07-11 11:19 | disposition home or self-care (01) | DRG 308 ==
LOC: EDBD 14:22 → M ED 14:22 → M ED INP 19:07 → M PCU 21:39
PROVIDERS: ADMIT Internal Medicine Nephrology; ATTEND Internal Medicine Nephrology
PROC: 0W9B3ZZ Drainage of Left Pleural Cavity, Percutaneous Approach (ICD-10-PCS; principal; 2024-07-08 14:23)
DX: I48.92 Unspecified atrial flutter (principal); N18.6 End stage renal disease; I50.33 Acute on chronic diastolic (congestive) heart failure; I13.2 Hypertensive heart and chronic kidney disease with heart failure and with stage 5 chronic kidney disease, or end stage renal disease; C34.32 Malignant neoplasm of lower lobe, left bronchus or lung; R04.2 Hemoptysis; E11.51 Type 2 diabetes mellitus with diabetic peripheral angiopathy without gangrene; E11.22 Type 2 diabetes mellitus with diabetic chronic kidney disease; K21.9 Gastro-esophageal reflux disease without esophagitis; I25.10 Atherosclerotic heart disease of native coronary artery without angina pectoris; I48.0 Paroxysmal atrial fibrillation; I35.0 Nonrheumatic aortic (valve) stenosis; Z79.899 Other long term (current) drug therapy; Z79.82 Long term (current) use of aspirin; Z79.4 Long term (current) use of insulin; Z88.2 Allergy status to sulfonamides; Z96.653 Presence of artificial knee joint, bilateral; E78.5 Hyperlipidemia, unspecified

== ENCOUNTER → 2024-07-14 | Outpatient (CLI) | payer MEDICARE, OTHER ==
[~2024-07-14] MED LIST changes: +LOPR1TAB7 PO
== END ==
LOC: M PLARAD 11:16
PROVIDERS: ATTEND Internal Medicine Pulmonary Disease
DX: R91.8 Other nonspecific abnormal finding of lung field (principal)
CPT/HCPCS: 78815; A9552

== ENCOUNTER → 2024-07-27 | Outpatient (CLI) | payer MEDICARE, OTHER ==
[~2024-07-27] MED LIST changes: +DEXA4TA PO; +ELIQ5TAB PO; +FOLI1TAB11 PO
== END ==
LOC: M ONCR 10:45
PROVIDERS: ATTEND General Practice
DX: C34.32 Malignant neoplasm of lower lobe, left bronchus or lung (principal); Z77.090 Contact with and (suspected) exposure to asbestos; Z79.4 Long term (current) use of insulin; Z79.82 Long term (current) use of aspirin; Z87.891 Personal history of nicotine dependence; Z88.1 Allergy status to other antibiotic agents; Z88.2 Allergy status to sulfonamides

== ENCOUNTER → 2024-08-05 | Outpatient (CLI) | payer MEDICARE, OTHER ==
[~2024-08-05] VITALS: Ht 172.7 cm; Wt 70.5 kg
[~2024-08-05] MED LIST changes: +LIDOCAINE 1% MDV 20ML VIAL As Ordered ONE; +MIDAZOLAM INJ 2MG/2ML VIAL As Ordered ONE; +NS (Normal Saline) 0.9% 1,000 ML IV SCH; +ceFAZolin 2 GM/D5W 50 ML IV BAG As Ordered ONE; +ceFAZolin SOD 2 GM in IV 1 EA IV ONE; +fentaNYL 100 MCG/2 ML INJECTION As Ordered ONE
[2024-08-05 07:15] VITALS: TEMP 98.2
[2024-08-05 09:00] VITALS: BP 134/65; O2SAT 97
== END ==
LOC: M IRPRO 07:01
PROVIDERS: ATTEND Specialist
DX: C34.90 Malignant neoplasm of unspecified part of unspecified bronchus or lung (principal)
CPT/HCPCS: 36561; 99152; C1894; J0690; J1642; J2250; J3010

== ENCOUNTER 2024-08-10 05:42 | Inpatient (IN) | payer MEDICARE, OTHER ==
[~2024-08-10] VITALS: Ht 172.7 cm; Wt 71.0 kg
[~2024-08-10 05:42] MED LIST changes: -LIDOCAINE 1% MDV 20ML VIAL As Ordered ONE; -MIDAZOLAM INJ 2MG/2ML VIAL As Ordered ONE; -NS (Normal Saline) 0.9% 1,000 ML IV SCH; -ceFAZolin 2 GM/D5W 50 ML IV BAG As Ordered ONE; -ceFAZolin SOD 2 GM in IV 1 EA IV ONE; -fentaNYL 100 MCG/2 ML INJECTION As Ordered ONE
[2024-08-10] MEDS: TRANEXAMIC ACID 100 MG/ML 10ML VIAL NEB ONE (05:55)
[2024-08-10 06:21] LABS: BASO % 0.2 % (0.0-1.0); EOS # 0.1 10^3/uL (0.0-0.5); EOS % 0.7 % (0.0-3.0); HEMOGLOBIN 12.5 g/dl (13.5-17.5); LYMPH # 3.9 10^3/uL (1.5-5.0); LYMPH % 23.5 % (24.0-44.0); MEAN CORPUSCULAR HEMOGLOBIN 31.6 pg (27.0-33.0); MEAN CORPUSCULAR HGB CONC 32.9 g/dl (32.0-36.5); MONO # 1.6 10^3/uL (0.0-0.8); MONO % 9.9 % (2.0-8.0); NEUTROPHILS # 10.6 10^3/uL (1.5-8.5); NEUTROPHILS % 64.5 % (36.0-66.0); PLATELET COUNT, AUTOMATED 199 10^3/uL (150-450); RED BLOOD COUNT 3.96 10^6/uL (4.30-6.10); WHITE BLOOD COUNT 16.5 10^3/uL (4.0-10.0)
[2024-08-10 06:31] LABS: CALCIUM LEVEL 9.3 MG/DL (8.3-10.6); CREATININE FOR GFR 7.64 MG/DL (0.70-1.30); GLOMERULAR FILTRATION RATE 7.2 (>35); MAGNESIUM LEVEL 2.2 MG/DL (1.8-2.4); POTASSIUM SERUM 5.2 MMOL/L (3.5-5.1)
[2024-08-10 06:38] LABS: INR 1.32; PARTIAL THROMBOPLASTIN TIME 30.6 SECONDS (24.8-34.2); PROTHROMBIN TIME 16.6 SECONDS (12.5-14.5)
[2024-08-10] MEDS ORDERED: ISOVUE-370 76% 100ML VIAL As Ordered ONE (07:36)
[2024-08-10] MEDS ORDERED: ELIQ2.5T PO (09:57)
[2024-08-10] MEDS ORDERED: METO100T5 PO (10:01)
[2024-08-10] MEDS ORDERED: HOME MED LIST COMPLETE! XX SCH (10:05)
[2024-08-10] MEDS ORDERED: DEXTROSE 50% 50ML SYRINGE IV PRN (10:15)
[2024-08-10] MEDS ORDERED: GLUCOSE 4 GM CHEW PO PRN (10:15)
[2024-08-10] MEDS ORDERED: GLUCAGON INJ 1MG VIAL SC PRN (10:15)
[2024-08-10 11:13] LABS: CK-MB VALUE MASS < 1.0 NG/ML (<3.6)
[2024-08-10 11:14] LABS: CPK CREATINE PHOSPHOKINASE 16 U/L (46-171); MB/CK RELATIVE INDEX 6.25 (< OR =4)
[2024-08-10] MEDS: IPRATROPIUM 0.5MG/ALBUTEROL 2.5MG INH SOL UD 3ML (DUONEB) NEB SCH (12:00)
[2024-08-10] MEDS: PANTOPRAZOLE 40MG TAB (PROTONIX) PO SCH (12:09)
[2024-08-10] MEDS: cefTRIAXone SOD 1 GM in DEXTROSE 5% (D5W) ADV/MINI-BAG 50 ML IV SCH (12:10)
[2024-08-10] MEDS: guaiFENesin ER TABLET 600 MG TAB PO SCH (12:10)
[2024-08-10] MEDS: METOPROLOL TARTRATE 100MG TAB PO SCH (12:10)
[2024-08-10] MEDS: DOXYCYCLINE HYCLATE 100MG TABLET PO SCH (12:10)
[2024-08-10 13:25] VITALS: BP 142/63; TEMP 97.2; O2SAT 88
[2024-08-10] MEDS: INSULIN LISPRO (NovoLOG) PER UNIT SC SCH ×2 (13:38→21:00)
[2024-08-10] MEDS: CALCIUM ACETATE 667MG GELCAP PO SCH (13:38)
[2024-08-10 13:47] LABS: CK-MB VALUE MASS < 1.0 NG/ML (<3.6)
[2024-08-10 13:49] LABS: CPK CREATINE PHOSPHOKINASE 20 U/L (46-171)
[2024-08-10 16:23] VITALS: BP 160/67; TEMP 98.8; O2SAT 89
[2024-08-10] MEDS ORDERED: LIDOCAINE 1% SDV 5ML VIAL SC PRN (16:45)
[2024-08-10] MEDS ORDERED: HEPARIN 1,000UNITS/ML 10ML VIAL (FOR RADIOLOGY & DIALYSIS ONLY) IV PRN (16:45)
[2024-08-10] MEDS ORDERED: HEPARIN 1,000UNITS/ML 10ML VIAL (FOR RADIOLOGY & DIALYSIS ONLY) XX SCH (16:45)
[2024-08-10] MEDS ORDERED: SODIUM CHLORIDE 0.9% 1000 ML IV PRN (16:45)
[2024-08-10 21:11] VITALS: BP 128/75; TEMP 98.7; O2SAT 92
[2024-08-10] MEDS: ROSUVASTATIN 10 MG TAB (CRESTOR) PO SCH (21:17)
[2024-08-10] MEDS: RAMELTEON 8 MG TAB (ROZEREM) PO SCH (21:18)
[2024-08-10] MEDS: LEVEMIR (INSULIN DETEMIR) 1 UNITS/0.01ML SC SCH (21:21)
[2024-08-10 23:26] VITALS: BP 109/57; TEMP 98.4; O2SAT 91
[2024-08-11] VITALS (8 sets, daily range): BP systolic 100–134; BP diastolic 58–65; TEMP 97.9–98.4; O2SAT 88–100
[2024-08-11 06:54] LABS: HEMATOCRIT 33.8 % (42.0-52.0); HEMOGLOBIN 11.1 g/dl (13.5-17.5); MEAN CORPUSCULAR HEMOGLOBIN 31.7 pg (27.0-33.0); MEAN CORPUSCULAR HGB CONC 32.8 g/dl (32.0-36.5); MEAN CORPUSCULAR VOLUME 96.6 fl (80.0-96.0); PLATELET COUNT, AUTOMATED 142 10^3/uL (150-450)
[2024-08-11 07:13] LABS: ALBUMIN 2.9 G/DL (3.2-5.2); ALKALINE PHOSPHATASE 75 U/L (40-129); ALT/SGPT < 9 U/L (7.0-40); AST/SGOT < 8 U/L (<34); BILIRUBIN,TOTAL 0.9 MG/DL (0.3-1.2); BLOOD UREA NITROGEN 62 MG/DL (9-23); CALCIUM LEVEL 8.9 MG/DL (8.3-10.6); CARBON DIOXIDE LEVEL 31 MMOL/L (20-31); CHLORIDE LEVEL 98 MMOL/L (98-107); CREATININE FOR GFR 5.63 MG/DL (0.70-1.30); GLOMERULAR FILTRATION RATE 10.2 (>35); GLUCOSE, FASTING 85 MG/DL (74-106); POTASSIUM SERUM 4.6 MMOL/L (3.5-5.1); SODIUM LEVEL 137 MMOL/L (136-145); TOTAL PROTEIN 6.4 G/DL (5.7-8.2)
[2024-08-11] MEDS: CYANOCOBALAMIN 500 MCG TAB PO SCH (09:35)
[2024-08-11] MEDS ORDERED: METOPROLOL TARTRATE 100MG TAB PO SCH (14:00)
[2024-08-11] MEDS: AMIODARONE HCL 150 MG in IV 1 EA IV ONE (15:12)
[2024-08-11] MEDS: AMIODARONE HCL 360 MG in IV 1 EA IV SCH ×2 (15:25→21:16)
[2024-08-11] MEDS: METOPROLOL TARTRATE 100MG TAB PO SCH (20:52)
[2024-08-12 04:02] VITALS: BP 122/59; TEMP 98.3; O2SAT 93
[2024-08-12] MEDS ORDERED: HEPARIN 1,000UNITS/ML 10ML VIAL (FOR RADIOLOGY & DIALYSIS ONLY) IV PRN (06:00)
[2024-08-12] MEDS ORDERED: HEPARIN 1,000UNITS/ML 10ML VIAL (FOR RADIOLOGY & DIALYSIS ONLY) XX SCH (06:00)
[2024-08-12] MEDS ORDERED: LIDOCAINE 1% SDV 5ML VIAL SC PRN (06:00)
[2024-08-12] MEDS ORDERED: SODIUM CHLORIDE 0.9% 1000 ML IV PRN (06:00)
[2024-08-12 08:15] LABS: HEMATOCRIT 32.6 % (42.0-52.0); MEAN CORPUSCULAR HEMOGLOBIN 32.3 pg (27.0-33.0); MEAN CORPUSCULAR HGB CONC 33.7 g/dl (32.0-36.5); MEAN CORPUSCULAR VOLUME 95.6 fl (80.0-96.0); PLATELET COUNT, AUTOMATED 145 10^3/uL (150-450); RED BLOOD COUNT 3.41 10^6/uL (4.30-6.10); WHITE BLOOD COUNT 11.7 10^3/uL (4.0-10.0)
[2024-08-12 08:17] LABS: ALBUMIN 2.9 G/DL (3.2-5.2); BILIRUBIN,TOTAL 0.4 MG/DL (0.3-1.2); CALCIUM LEVEL 8.6 MG/DL (8.3-10.6); CREATININE FOR GFR 7.23 MG/DL (0.70-1.30); GLOMERULAR FILTRATION RATE 7.7 (>35); POTASSIUM SERUM 4.7 MMOL/L (3.5-5.1); TOTAL PROTEIN 6.5 G/DL (5.7-8.2)
[2024-08-12 08:46] VITALS: BP 136/63; TEMP 97.5; O2SAT 94
[2024-08-12 14:32] LABS: PROCALCITONIN 0.94 ng/ml
[2024-08-12 16:26] VITALS: BP 126/59; TEMP 98; O2SAT 91
[2024-08-12 19:55] VITALS: BP 133/69; TEMP 98.2; O2SAT 94
[2024-08-12 23:38] VITALS: BP 106/54; TEMP 98.5; O2SAT 96
[2024-08-13] VITALS (8 sets, daily range): BP systolic 104–129; BP diastolic 47–73; TEMP 97.7–99.3; O2SAT 90–98
[2024-08-13 06:07] LABS: HEMATOCRIT 32.1 % (42.0-52.0); HEMOGLOBIN 10.7 g/dl (13.5-17.5); MEAN CORPUSCULAR HEMOGLOBIN 31.8 pg (27.0-33.0); MEAN CORPUSCULAR HGB CONC 33.3 g/dl (32.0-36.5); MEAN CORPUSCULAR VOLUME 95.3 fl (80.0-96.0); PLATELET COUNT, AUTOMATED 153 10^3/uL (150-450); RED BLOOD COUNT 3.37 10^6/uL (4.30-6.10)
[2024-08-13 06:22] LABS: ALBUMIN 2.6 G/DL (3.2-5.2); BILIRUBIN,TOTAL 0.4 MG/DL (0.3-1.2); CALCIUM LEVEL 8.5 MG/DL (8.3-10.6); CREATININE FOR GFR 5.02 MG/DL (0.70-1.30); GLOMERULAR FILTRATION RATE 11.7 (>35); POTASSIUM SERUM 4.6 MMOL/L (3.5-5.1); TOTAL PROTEIN 6.4 G/DL (5.7-8.2)
[2024-08-13] MEDS: AMIODARONE 200 MG TAB (PACERONE) PO SCH (21:33)
[2024-08-14 04:00] VITALS: BP 122/55; TEMP 97.9; O2SAT 96
[2024-08-14] MEDS: ACETAMINOPHEN 325 MG TAB PO PRN (04:12)
[2024-08-14 05:52] LABS: HEMATOCRIT 30.7 % (42.0-52.0); HEMOGLOBIN 10.2 g/dl (13.5-17.5); MEAN CORPUSCULAR HEMOGLOBIN 31.5 pg (27.0-33.0); MEAN CORPUSCULAR HGB CONC 33.2 g/dl (32.0-36.5); MEAN CORPUSCULAR VOLUME 94.8 fl (80.0-96.0); PLATELET COUNT, AUTOMATED 152 10^3/uL (150-450); RED BLOOD COUNT 3.24 10^6/uL (4.30-6.10); WHITE BLOOD COUNT 8.1 10^3/uL (4.0-10.0)
[2024-08-14 06:15] LABS: ALBUMIN 2.8 G/DL (3.2-5.2); ALKALINE PHOSPHATASE 85 U/L (40-129); ALT/SGPT < 9 U/L (7.0-40); AST/SGOT < 8 U/L (<34); BILIRUBIN,TOTAL 0.3 MG/DL (0.3-1.2); BLOOD UREA NITROGEN 76 MG/DL (9-23); CALCIUM LEVEL 8.2 MG/DL (8.3-10.6); CARBON DIOXIDE LEVEL 26 MMOL/L (20-31); CHLORIDE LEVEL 96 MMOL/L (98-107); GLOMERULAR FILTRATION RATE 8.2 (>35); GLUCOSE, FASTING 113 MG/DL (74-106); POTASSIUM SERUM 4.5 MMOL/L (3.5-5.1); SODIUM LEVEL 136 MMOL/L (136-145); TOTAL PROTEIN 6.1 G/DL (5.7-8.2)
[2024-08-14] MEDS ORDERED: SODIUM CHLORIDE 0.9% 1000 ML IV PRN (07:40)
[2024-08-14] MEDS ORDERED: HEPARIN 1,000UNITS/ML 10ML VIAL (FOR RADIOLOGY & DIALYSIS ONLY) IV PRN (07:40)
[2024-08-14] MEDS ORDERED: LIDOCAINE 1% SDV 5ML VIAL SC PRN (07:40)
[2024-08-14 08:07] VITALS: O2SAT 95
[2024-08-14 08:18] VITALS: O2SAT 84; O2SAT 94
[2024-08-14] MEDS: HEPARIN 1,000UNITS/ML 10ML VIAL (FOR RADIOLOGY & DIALYSIS ONLY) XX SCH (10:03)
[2024-08-14 11:36] LABS: HEPATITIS B SURFACE ANTIBODY POSITIVE (POSITIVE)
[2024-08-14 11:47] LABS: HEPATITIS B SURFACE ANTIGEN NEGATIVE (NEGATIVE)
[2024-08-14 12:08] LABS: HEPATITIS C VIRUS ABY INDEX < 0.02 INDEX (<0.8)
[2024-08-14 12:09] LABS: HEPATITIS B CORE ANTIBODY IGM NEGATIVE (NEGATIVE)
[2024-08-14 12:51] VITALS: O2SAT 90
[2024-08-14 14:00] VITALS: BP 128/52; TEMP 97.5; O2SAT 92
[2024-08-14 20:32] VITALS: BP 114/46; TEMP 97.7; O2SAT 92
[2024-08-15] MEDS: ALBUTEROL SULFATE 2.5MG/0.5ML INH NEB SOLN NEB PRN (02:38)
[2024-08-15 04:55] VITALS: BP 122/58; TEMP 98.2; O2SAT 92
[2024-08-15 05:54] LABS: HEMATOCRIT 32.4 % (42.0-52.0); HEMOGLOBIN 10.5 g/dl (13.5-17.5); MEAN CORPUSCULAR HEMOGLOBIN 31.3 pg (27.0-33.0); MEAN CORPUSCULAR HGB CONC 32.4 g/dl (32.0-36.5); MEAN CORPUSCULAR VOLUME 96.4 fl (80.0-96.0); PLATELET COUNT, AUTOMATED 172 10^3/uL (150-450); RED BLOOD COUNT 3.36 10^6/uL (4.30-6.10); WHITE BLOOD COUNT 8.5 10^3/uL (4.0-10.0)
[2024-08-15] MEDS: SENNA 8.6 MG TAB (SENOKOT) PO PRN (06:16)
[2024-08-15 06:17] LABS: ALBUMIN 2.8 G/DL (3.2-5.2); ALKALINE PHOSPHATASE 84 U/L (40-129); ALT/SGPT < 9 U/L (7.0-40); AST/SGOT < 8 U/L (<34); BILIRUBIN,TOTAL 0.4 MG/DL (0.3-1.2); BLOOD UREA NITROGEN 48 MG/DL (9-23); CALCIUM LEVEL 8.2 MG/DL (8.3-10.6); CARBON DIOXIDE LEVEL 27 MMOL/L (20-31); CHLORIDE LEVEL 101 MMOL/L (98-107); CREATININE FOR GFR 5.15 MG/DL (0.70-1.30); GLOMERULAR FILTRATION RATE 11.3 (>35); GLUCOSE, FASTING 108 MG/DL (74-106); POTASSIUM SERUM 4.7 MMOL/L (3.5-5.1); SODIUM LEVEL 139 MMOL/L (136-145); TOTAL PROTEIN 6.4 G/DL (5.7-8.2)
[2024-08-15] MEDS: MIRALAX *UNIT DOSE* 17GM PACKET PO PRN (08:18)
[2024-08-15] MEDS: MOM 30ML SUSPENSION UDC PO ONE (10:25)
[2024-08-15] MEDS: DOCUSATE SODIUM 100MG CAPSULE PO SCH (10:25)
[2024-08-15 12:00] VITALS: BP 151/57; TEMP 97.3; O2SAT 94
[2024-08-15 20:00] VITALS: BP 133/73; TEMP 97.2; O2SAT 97
[2024-08-15] MEDS: MOM 30ML SUSPENSION UDC PO PRN (21:05)
[2024-08-15] MEDS: SENNA 8.6 MG TAB (SENOKOT) PO SCH (21:05)
[2024-08-16 04:00] VITALS: BP 125/54; TEMP 97.5; O2SAT 96
[2024-08-16 05:45] LABS: HEMATOCRIT 32.4 % (42.0-52.0); HEMOGLOBIN 10.6 g/dl (13.5-17.5); MEAN CORPUSCULAR HEMOGLOBIN 31.5 pg (27.0-33.0); MEAN CORPUSCULAR HGB CONC 32.7 g/dl (32.0-36.5); MEAN CORPUSCULAR VOLUME 96.1 fl (80.0-96.0); PLATELET COUNT, AUTOMATED 181 10^3/uL (150-450); RED BLOOD COUNT 3.37 10^6/uL (4.30-6.10); WHITE BLOOD COUNT 10.1 10^3/uL (4.0-10.0)
[2024-08-16 06:05] LABS: ALBUMIN 2.9 G/DL (3.2-5.2); ALKALINE PHOSPHATASE 86 U/L (40-129); ALT/SGPT < 9 U/L (7.0-40); AST/SGOT < 8 U/L (<34); BILIRUBIN,TOTAL 0.3 MG/DL (0.3-1.2); BLOOD UREA NITROGEN 69 MG/DL (9-23); CALCIUM LEVEL 8.7 MG/DL (8.3-10.6); CARBON DIOXIDE LEVEL 26 MMOL/L (20-31); CHLORIDE LEVEL 99 MMOL/L (98-107); CREATININE FOR GFR 6.58 MG/DL (0.70-1.30); GLOMERULAR FILTRATION RATE 8.5 (>35); GLUCOSE, FASTING 77 MG/DL (74-106); POTASSIUM SERUM 4.7 MMOL/L (3.5-5.1); SODIUM LEVEL 138 MMOL/L (136-145); TOTAL PROTEIN 6.5 G/DL (5.7-8.2)
[2024-08-16 08:16] VITALS: BP 124/50
[2024-08-16] MEDS ORDERED: SENO8.6T5 PO (09:56)
[2024-08-16] MEDS ORDERED: AMIO200T49 PO (09:56)
[2024-08-16] MEDS ORDERED: MIRA3350 PO (09:56)
[2024-08-16] MEDS ORDERED: COLA100C5 PO (09:56)
[2024-08-16] MEDS: MIRALAX *UNIT DOSE* 17GM PACKET PO ONE (10:11)
[2024-08-16] MEDS: LACTULOSE 20GM/30ML SYRUP UDC PO ONE (10:11)
[2024-08-16 12:12] VITALS: BP 114/56; TEMP 98.2; O2SAT 100
[2024-08-20] MEDS ORDERED: AMIODARONE 200 MG TAB (PACERONE) PO SCH (09:00)
== END 2024-08-16 13:01 | disposition home or self-care (01) | DRG 189 ==
LOC: EDBD 05:42 → M ED 05:42 → M ED INP 10:10 → M PCU 13:25 → M MSPAV 08-13 16:35
PROVIDERS: ADMIT Internal Medicine; ATTEND Internal Medicine
DX: J96.01 Acute respiratory failure with hypoxia (principal); N18.6 End stage renal disease; J18.9 Pneumonia, unspecified organism; C34.90 Malignant neoplasm of unspecified part of unspecified bronchus or lung; I50.32 Chronic diastolic (congestive) heart failure; R04.2 Hemoptysis; I48.92 Unspecified atrial flutter; I13.2 Hypertensive heart and chronic kidney disease with heart failure and with stage 5 chronic kidney disease, or end stage renal disease; E87.5 Hyperkalemia; I25.10 Atherosclerotic heart disease of native coronary artery without angina pectoris; K21.9 Gastro-esophageal reflux disease without esophagitis; I73.9 Peripheral vascular disease, unspecified; E78.5 Hyperlipidemia, unspecified; E11.9 Type 2 diabetes mellitus without complications; Z95.1 Presence of aortocoronary bypass graft; Z95.2 Presence of prosthetic heart valve; Z87.891 Personal history of nicotine dependence; Z85.828 Personal history of other malignant neoplasm of skin; I48.91 Unspecified atrial fibrillation; Z79.01 Long term (current) use of anticoagulants; Z79.899 Other long term (current) drug therapy; Z96.653 Presence of artificial knee joint, bilateral; Z88.2 Allergy status to sulfonamides

== ENCOUNTER 2024-08-18 10:00 | Outpatient (RCR) | payer MEDICARE, OTHER ==
[~2024-08-18 10:00] MED LIST changes: +AMIO200T49 PO; +COLA100C5 PO; +ELIQ2.5T PO; +METO100T5 PO; +MIRA3350 PO; +SENO8.6T5 PO
== END 2024-09-03 ==
LOC: M ONCR 10:00
PROVIDERS: ATTEND General Practice
DX: Z51.0 Encounter for antineoplastic radiation therapy (principal); C34.32 Malignant neoplasm of lower lobe, left bronchus or lung

== ENCOUNTER → 2024-09-10 | Outpatient (CLI) | payer MEDICARE, OTHER ==
[2024-09-10 12:28] LABS: PLATELET COUNT, AUTOMATED 140 10^3/uL (150-450)
[2024-09-10 12:43] LABS: INR 1.09; PARTIAL THROMBOPLASTIN TIME 28.1 SECONDS (24.8-34.2); PROTHROMBIN TIME 14.4 SECONDS (12.5-14.5)
== END ==
LOC: M PLALAB 11:23
PROVIDERS: ATTEND Internal Medicine Pulmonary Disease
DX: Z01.812 Encounter for preprocedural laboratory examination (principal); Z79.01 Long term (current) use of anticoagulants

== ENCOUNTER → 2024-09-15 | Outpatient (CLI) | payer MEDICARE, OTHER ==
[2024-09-15 09:55] VITALS: TEMP 97.3
[2024-09-15 11:14] LABS: PH BODY FLUID 7.747 UNITS (NOT ESTABLISHED); SOURCE, BODY FLUID pH PLEURAL
[2024-09-15 11:27] LABS: SOURCE, BODY FLUID PLEURAL
[2024-09-15 11:28] LABS: APPEARANCE, BODY FLUID HAZY (CLEAR); PLEURAL FL COLOR YELLOW (COLORLESS)
[2024-09-15 12:00] VITALS: BP 106/54; O2SAT 97
[2024-09-15 12:04] LABS: SOURCE, BODY FLUID ALBUMIN PLEURAL
[2024-09-15 12:08] LABS: SOURCE, BODY FLUID GLUCOSE PLEURAL
[2024-09-15 12:09] LABS: SOURCE, BODY FLUID TOT PROTEIN PLEURAL; TOTAL PROTEIN, BODY FLUID 2.1 G/DL (NOT ESTABLISHED)
[2024-09-15 12:10] LABS: LDH, BODY FLUID 91 U/L (NOT ESTABLISHED); SOURCE, BODY FLUID LDH PLEURAL
[2024-09-15 12:11] LABS: AMYLASE, BODY FLUID 78 U/L (NOT ESTABLISHED); SOURCE, BODY FLUID AMYLASE PLEURAL
== END ==
LOC: M IRPRO 09:40
PROVIDERS: ATTEND Internal Medicine Pulmonary Disease
DX: J90 Pleural effusion, not elsewhere classified (principal)

== ENCOUNTER 2024-09-24 05:29 | Inpatient (IN) | payer MEDICARE, OTHER ==
[~2024-09-24] VITALS: Ht 172.7 cm; Wt 71.4 kg
[~2024-09-24 05:29] MED LIST changes: +Folic Acid PO; +ONDA-284 PO; +PROC10TA5 PO; +SYNT25TA PO
[2024-09-24 06:05] LABS: VENOUS PH 7.367 UNITS (7.330-7.430)
[2024-09-24 06:06] LABS: VENOUS BASE EXCESS 3.8 (-2.0-2.0); VENOUS HCO3 30.3 MMOL/L (23.0-27.0); VENOUS O2 SATURATION 72.7 % (60.0-80.0); VENOUS PARTIAL PRESSURE CO2 53.9 mmHg (38.0-50.0); VENOUS PARTIAL PRESSURE O2 43.6 mmHg (30.0-50.0); VENOUS STANDARD HCO3 27.3 MMOL/L; VENOUS TOTAL CO2 31.9 MMOL/L (24.0-28.0)
[2024-09-24 06:20] LABS: BASO % 0.1 % (0.0-1.0); HEMATOCRIT 35.1 % (42.0-52.0); HEMOGLOBIN 11.1 g/dl (13.5-17.5); LYMPH # 0.5 10^3/uL (1.5-5.0); LYMPH % 3.7 % (24.0-44.0); MEAN CORPUSCULAR HEMOGLOBIN 31.6 pg (27.0-33.0); MEAN CORPUSCULAR HGB CONC 31.6 g/dl (32.0-36.5); MONO # 0.4 10^3/uL (0.0-0.8); MONO % 3.1 % (2.0-8.0); NEUTROPHILS # 11.9 10^3/uL (1.5-8.5); NEUTROPHILS % 92.2 % (36.0-66.0); PLATELET COUNT, AUTOMATED 173 10^3/uL (150-450); RED BLOOD COUNT 3.51 10^6/uL (4.30-6.10); WHITE BLOOD COUNT 12.9 10^3/uL (4.0-10.0)
[2024-09-24 06:44] LABS: ALBUMIN 2.5 G/DL (3.2-5.2); ALKALINE PHOSPHATASE 128 U/L (40-129); ALT/SGPT 16 U/L (7.0-40); AST/SGOT 27 U/L (<34); BILIRUBIN,DIRECT 0.2 MG/DL (<0.4); BILIRUBIN,TOTAL 0.5 MG/DL (0.3-1.2); BLOOD UREA NITROGEN 50 MG/DL (9-23); CALCIUM LEVEL 8.2 MG/DL (8.3-10.6); CARBON DIOXIDE LEVEL 30 MMOL/L (20-31); CHLORIDE LEVEL 100 MMOL/L (98-107); CREATININE FOR GFR 4.43 MG/DL (0.70-1.30); GLOMERULAR FILTRATION RATE 13.4 (>35); GLUCOSE, FASTING 211 MG/DL (74-106); POTASSIUM SERUM 5.9 MMOL/L (3.5-5.1); SODIUM LEVEL 142 MMOL/L (136-145); TOTAL PROTEIN 6.3 G/DL (5.7-8.2)
[2024-09-24 07:04] LABS: CK-MB VALUE MASS < 1.0 NG/ML (<3.6)
[2024-09-24 07:08] LABS: CPK CREATINE PHOSPHOKINASE 33 U/L (46-171); MB/CK RELATIVE INDEX 3.03 (< OR =4)
[2024-09-24 07:26] LABS: CK-MB VALUE MASS < 1.0 NG/ML (<3.6)
[2024-09-24 07:27] LABS: CPK CREATINE PHOSPHOKINASE 18 U/L (46-171); MB/CK RELATIVE INDEX 5.55 (< OR =4)
[2024-09-24] MEDS ORDERED: MED REC IN PROGRESS XX SCH (08:10)
[2024-09-24] MEDS: AMIODARONE 200 MG TAB (PACERONE) PO SCH (09:00)
[2024-09-24] MEDS ORDERED: FOLI1TAB11 PO (09:15)
[2024-09-24] MEDS ORDERED: XANA0.25 PO (09:15)
[2024-09-24] MEDS ORDERED: MIRA3350 PO (09:15)
[2024-09-24] MEDS ORDERED: VENTAER INH (09:15)
[2024-09-24] MEDS ORDERED: AMIO200T49 PO (09:15)
[2024-09-24] MEDS ORDERED: HOME MED LIST COMPLETE! XX SCH (09:20)
[2024-09-24] MEDS ORDERED: DEXTROSE 50% 50ML SYRINGE IV PRN (10:45)
[2024-09-24] MEDS ORDERED: GLUCAGON INJ 1MG VIAL SC PRN (10:45)
[2024-09-24] MEDS ORDERED: GLUCOSE 4 GM CHEW PO PRN (10:45)
[2024-09-24] MEDS ORDERED: PROCHLORPERAZINE 5MG TAB PO PRN (10:45)
[2024-09-24 11:28] LABS: PROCALCITONIN 0.28 ng/ml
[2024-09-24 11:34] LABS: INR 1.16; PROTHROMBIN TIME 15.1 SECONDS (12.5-14.5)
[2024-09-24] MEDS ORDERED: ONDANSETRON 4MG ORAL DISINTEGRATING TAB PO PRN (12:00)
[2024-09-24] MEDS ORDERED: NS 250 ML IV ONE (12:25)
[2024-09-24 12:30] VITALS: BP 97/59; TEMP 98; O2SAT 94
[2024-09-24 13:35] LABS: LDH LACTATE DEHYDROGENASE 212 U/L (120-246)
[2024-09-24] MEDS: cefTRIAXone SOD 2 GM in DEXTROSE 5% (D5W) ADV/MINI-BAG 50 ML IV SCH (14:56)
[2024-09-24] MEDS: LEVOTHYROXINE 25MCG TABLET (0.025MG) PO SCH (14:56)
[2024-09-24] MEDS: DOXYCYCLINE HYCLATE 100MG TABLET PO SCH (14:56)
[2024-09-24] MEDS: metOLazone 5 MG TAB PO ONE (14:57)
[2024-09-24] MEDS: CYANOCOBALAMIN 500 MCG TAB PO SCH (14:57)
[2024-09-24] MEDS: PANTOPRAZOLE 40MG TAB (PROTONIX) PO SCH (14:57)
[2024-09-24] MEDS: TORSEMIDE 100 MG TAB PO ONE (14:57)
[2024-09-24] MEDS: FOLIC ACID 1MG TAB PO SCH (14:57)
[2024-09-24] MEDS: MIRALAX *UNIT DOSE* 17GM PACKET PO SCH (14:58)
[2024-09-24] MEDS: PATIROMER SORBITEX CALCIUM 8.4 GM POWDER PACKET (VELTASSA) PO ONE ×2 (14:59→18:55)
[2024-09-24] MEDS: INSULIN LISPRO (NovoLOG) PER UNIT SC SCH ×2 (14:59→21:00)
[2024-09-24 15:59] VITALS: BP 100/65; TEMP 97.7; O2SAT 96
[2024-09-24] MEDS ORDERED: ONDANSETRON 4MG ORAL DISINTEGRATING TAB PO SCH (16:00)
[2024-09-24 19:34] VITALS: BP 113/52; TEMP 97.2; O2SAT 94
[2024-09-24] MEDS: LEVEMIR (INSULIN DETEMIR) 1 UNITS/0.01ML SC SCH (21:00)
[2024-09-24] MEDS: ALPRAZolam 0.25 MG TAB PO SCH (22:07)
[2024-09-24] MEDS: ROSUVASTATIN 10 MG TAB (CRESTOR) PO SCH (22:07)
[2024-09-24] MEDS: ACETAMINOPHEN 325 MG TAB PO PRN (22:09)
[2024-09-24 23:19] VITALS: BP 118/55; TEMP 97.6; O2SAT 91
[2024-09-24 23:55] VITALS: O2SAT 88
[2024-09-24 23:58] VITALS: O2SAT 91
[2024-09-24] MEDS: ALBUTEROL SULFATE 2.5MG/0.5ML INH NEB SOLN NEB PRN (23:58)
[2024-09-25] VITALS (8 sets, daily range): BP systolic 114–129; BP diastolic 59–85; TEMP 97.2–97.6; O2SAT 84–99
[2024-09-25 06:05] LABS: HEMATOCRIT 37.6 % (42.0-52.0); MEAN CORPUSCULAR HEMOGLOBIN 31.7 pg (27.0-33.0); MEAN CORPUSCULAR HGB CONC 31.9 g/dl (32.0-36.5); MEAN CORPUSCULAR VOLUME 99.2 fl (80.0-96.0); PLATELET COUNT, AUTOMATED 136 10^3/uL (150-450); RED BLOOD COUNT 3.79 10^6/uL (4.30-6.10); WHITE BLOOD COUNT 12.4 10^3/uL (4.0-10.0)
[2024-09-25 06:27] LABS: ALBUMIN 2.6 G/DL (3.2-5.2); BILIRUBIN,TOTAL 0.5 MG/DL (0.3-1.2); CALCIUM LEVEL 7.6 MG/DL (8.3-10.6); CREATININE FOR GFR 5.91 MG/DL (0.70-1.30); GLOMERULAR FILTRATION RATE 9.6 (>35); POTASSIUM SERUM 5.7 MMOL/L (3.5-5.1); TOTAL PROTEIN 6.1 G/DL (5.7-8.2)
[2024-09-25] MEDS: ATROPINE SULFATE 1% OPHTH SOLN 2ML BTL SL PRN (18:20)
[2024-09-25] MEDS: LORazepam 2 MG/ML 1ML VIAL IV PRN (20:39)
[2024-09-25] MEDS: MORPHINE 2 MG/ML 1ML VIAL IV PRN (22:46)
[2024-09-25] MEDS: SCOPOLAMINE 1MG TRANSDERMAL PATCH TOP PRN (22:51)
[2024-09-26] MEDS: MORPHINE 10MG/0.5ML ORAL CONCENTRATE SOLUTION U/D SL PRN ×3 (03:19→20:45)
[2024-09-26] MEDS: CHLORASEPTIC SPRAY MT PRN (13:50)
[2024-09-26] MEDS: LORazepam 1 MG TAB PO PRN (14:00)
[2024-09-26] MEDS: LORazepam 2 MG TAB PO PRN (20:45)
[2024-09-26] MEDS: diphenhydrAMINE 50MG/ML VIAL IM ONE (22:11)
[2024-09-26] MEDS: OLANZapine INTRAMUSCULAR 10MG VIAL IM ONE (22:11)
== END 2024-09-27 05:56 | disposition expired | DRG 871 ==
LOC: M ED 05:29 → M ED INP 10:29 → M PCU 12:30 → M MS5PR 09-25 15:58
PROVIDERS: ADMIT Internal Medicine; ATTEND Internal Medicine
DX: A41.9 Sepsis, unspecified organism (principal); J96.01 Acute respiratory failure with hypoxia; J18.9 Pneumonia, unspecified organism; N18.6 End stage renal disease; I50.32 Chronic diastolic (congestive) heart failure; I13.2 Hypertensive heart and chronic kidney disease with heart failure and with stage 5 chronic kidney disease, or end stage renal disease; C34.32 Malignant neoplasm of lower lobe, left bronchus or lung; I48.92 Unspecified atrial flutter; J91.0 Malignant pleural effusion; R04.2 Hemoptysis; J81.1 Chronic pulmonary edema; E11.51 Type 2 diabetes mellitus with diabetic peripheral angiopathy without gangrene; E11.22 Type 2 diabetes mellitus with diabetic chronic kidney disease; Z95.2 Presence of prosthetic heart valve; I25.10 Atherosclerotic heart disease of native coronary artery without angina pectoris; E78.5 Hyperlipidemia, unspecified; E87.5 Hyperkalemia; K21.9 Gastro-esophageal reflux disease without esophagitis; Z95.1 Presence of aortocoronary bypass graft; Z95.5 Presence of coronary angioplasty implant and graft; E87.70 Fluid overload, unspecified; Z87.891 Personal history of nicotine dependence; Z79.899 Other long term (current) drug therapy; Z88.2 Allergy status to sulfonamides; Z79.4 Long term (current) use of insulin; Z92.21 Personal history of antineoplastic chemotherapy; Z51.5 Encounter for palliative care

== ENCOUNTER 2024-09-24 13:55 | Outpatient (RCR) | payer MEDICARE, OTHER ==
[~2024-09-24 13:55] MED LIST changes: +VENTAER INH; +XANA0.25 PO
== END 2024-09-27 ==
LOC: M ONCR 13:55
PROVIDERS: ATTEND General Practice
DX: Z51.0 Encounter for antineoplastic radiation therapy (principal); C34.32 Malignant neoplasm of lower lobe, left bronchus or lung